=== PATIENT | female | born 1995 | race Caucasian/White ===

== ENCOUNTER → 2024-04-01 08:30 | Outpatient (REF) | payer BC, SELFPAY | LOC: RAD 08:30 | PROVIDERS: ATTENDING PHYSICIAN Internal Medicine; FAMILY PHYSICIAN Nurse Practitioner Adult Health | DX: R10.30 Lower abdominal pain, unspecified (principal) | CPT/HCPCS: 74019 ==

== ENCOUNTER → 2024-06-26 10:12 | Outpatient (REF) | payer BC, SELFPAY | LOC: HWRAD 10:12 | PROVIDERS: ATTENDING PHYSICIAN Obstetrics & Gynecology; FAMILY PHYSICIAN Nurse Practitioner Family | DX: N80.9 Endometriosis, unspecified (principal); N83.209 Unspecified ovarian cyst, unspecified side; M62.89 Other specified disorders of muscle | CPT/HCPCS: 76830; 76856 ==

== ENCOUNTER 2024-07-03 11:04 | Outpatient (RCR) | payer BC, SELFPAY | END 2024-07-03 23:59 | disposition home or self-care (01) | LOC: RPT 11:04 | PROVIDERS: ATTENDING PHYSICIAN Internal Medicine; FAMILY PHYSICIAN Nurse Practitioner Family | DX: N80.9 Endometriosis, unspecified (principal); N83.209 Unspecified ovarian cyst, unspecified side; M62.89 Other specified disorders of muscle; Z73.6 Limitation of activities due to disability; R10.9 Unspecified abdominal pain; K59.00 Constipation, unspecified; M62.838 Other muscle spasm | CPT/HCPCS: 97110; 97112; 97140; 97162; 97530 ==

== ENCOUNTER 2024-07-29 16:57 | Outpatient (RCR) | payer BC, SELFPAY | END 2024-07-29 23:59 | disposition home or self-care (01) | LOC: RPT 16:57 | PROVIDERS: ATTENDING PHYSICIAN Internal Medicine; FAMILY PHYSICIAN Nurse Practitioner Family | DX: N80.9 Endometriosis, unspecified (principal); N83.209 Unspecified ovarian cyst, unspecified side; M62.89 Other specified disorders of muscle; Z73.6 Limitation of activities due to disability; R10.9 Unspecified abdominal pain; K59.00 Constipation, unspecified; M62.838 Other muscle spasm | CPT/HCPCS: 97014; 97110; 97112; 97140; 97530 ==

== ENCOUNTER 2024-08-19 16:08 | Outpatient (RCR) | payer BC, SELFPAY | END 2024-08-19 23:59 | disposition home or self-care (01) | LOC: RPT 16:08 | PROVIDERS: ATTENDING PHYSICIAN Internal Medicine; FAMILY PHYSICIAN Nurse Practitioner Family | DX: N80.9 Endometriosis, unspecified (principal); N83.209 Unspecified ovarian cyst, unspecified side; M62.89 Other specified disorders of muscle; Z73.6 Limitation of activities due to disability; R10.9 Unspecified abdominal pain; K59.00 Constipation, unspecified; M62.838 Other muscle spasm | CPT/HCPCS: 97014; 97110; 97112; 97140; 97530 ==

== ENCOUNTER 2024-09-11 09:17 | Outpatient (RCR) | payer BC, SELFPAY | END 2024-09-11 23:59 | disposition home or self-care (01) | LOC: RPT 09:17 | PROVIDERS: ATTENDING PHYSICIAN Internal Medicine; FAMILY PHYSICIAN Nurse Practitioner Family | DX: N80.9 Endometriosis, unspecified (principal); N83.209 Unspecified ovarian cyst, unspecified side; M62.89 Other specified disorders of muscle; Z73.6 Limitation of activities due to disability; R10.9 Unspecified abdominal pain; K59.00 Constipation, unspecified; M62.838 Other muscle spasm | CPT/HCPCS: 97014; 97110; 97112; 97140; 97530 ==

== ENCOUNTER 2024-10-16 09:11 | Outpatient (RCR) | payer BC, SELFPAY | END 2024-10-16 23:59 | disposition home or self-care (01) | LOC: RPT 09:11 | PROVIDERS: ATTENDING PHYSICIAN Internal Medicine; FAMILY PHYSICIAN Nurse Practitioner Family | DX: N80.9 Endometriosis, unspecified (principal); N83.209 Unspecified ovarian cyst, unspecified side; M62.89 Other specified disorders of muscle; Z73.6 Limitation of activities due to disability; R10.9 Unspecified abdominal pain; K59.00 Constipation, unspecified; M62.838 Other muscle spasm | CPT/HCPCS: 97014; 97112; 97140; 97530 ==

== ENCOUNTER 2024-11-13 11:22 | Outpatient (RCR) | payer BC, SELFPAY | END 2024-11-13 23:59 | disposition home or self-care (01) | LOC: RPT 11:22 | PROVIDERS: ATTENDING PHYSICIAN Internal Medicine; FAMILY PHYSICIAN Nurse Practitioner Family | DX: N80.9 Endometriosis, unspecified (principal); N83.209 Unspecified ovarian cyst, unspecified side; M62.89 Other specified disorders of muscle; Z73.6 Limitation of activities due to disability; R10.9 Unspecified abdominal pain; K59.00 Constipation, unspecified; M62.838 Other muscle spasm | CPT/HCPCS: 97112; 97530 ==